=== PATIENT | male | born 1995 ===

== ENCOUNTER 2017-10-01 14:59 | Emergency (ER) | payer OTHER ==
[2017-10-01] MEDS: IBUPROFEN 600 MG TAB PO (16:07)
[2017-10-01] MEDS: CEPHALEXIN 500 MG CAP PO (16:07)
== END 2017-10-01 16:14 | disposition home or self-care (01) ==
LOC: FTE 14:59
DX: K08.89 Other specified disorders of teeth and supporting structures (principal)
CPT/HCPCS: 99283